=== PATIENT | male | born 1970 ===

== ENCOUNTER 2023-10-13 17:48 | Emergency (ER) | payer SELFPAY ==
[2023-10-13] VITALS (29 sets, daily range): BP systolic 132–255; BP diastolic 85–154; PULSE 60–124; RESP 12–25; TEMP 36.4–36.8; O2SAT 92–99
--- NOTE | 2023-10-13 19:06 | DI.RAD_ITS ---
Exam(s) XR ANKLE LT COMPLETE EXAM: XR ANKLE LT COMPLETE CLINICAL HISTORY: twisted L ankle, now pain TECHNIQUE: 2D digital imaging was performed. Three views. COMPARISON: CR,XR XR ANKLE LT 2V from 10/13/2023 FINDINGS: BONES: Transverse fracture extending through the medial malleolus with mild displacement. Oblique fr acture extending through the lateral malleolus with extension to the ankle mortise. No bony destruc tive lesion is seen. JOINTS:Widening of the medial ankle mortise. SOFT TISSUE: Normal. IMPRESSION: Mildly displaced bimalleolar fracture. DATA REPOSITORY: RADIATION DOSE DELIVERED:
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
[2023-10-13] MEDS: Ketamine 500 MG/10 ML VIAL 83 MG IVP (20:42)
--- NOTE | 2023-10-13 20:45 | DI.RAD_ITS ---
Exam(s) XR ANKLE LT 2V EXAM: XR ANKLE LT 2V INDICATION: post reduction. COMPARISON: CR,XR XR ANKLE LT COMPLETE from 10/13/2023 TECHNIQUE: 2D digital imaging was performed. Two views. FINDINGS: A splint has been placed. There is improvement in the alignment of the medial and lateral malleolar fractures. There is only slight residual ankle mortise widening. Soft tissue swelling is present. DATA REPOSITORY: RADIATION DOSE DELIVERED:
--- NOTE | 2023-10-13 21:17 | DI.VRAD_ITS ---
PROCEDURE INFORMATION: Exam: XR Left Ankle Exam date and time: 10/13/2023 9:05 PM Age: 53 years old Clinical indication: Condition or disease; Other: Post reduction TECHNIQUE: Imaging protocol: Radiologic exam of the left ankle. Views: 1 or 2 views. COMPARISON: CR XR ANKLE LT COMPLETE 10/13/2023 7:03 PM FINDINGS: Bones/joints: There has been interval reduction of previously described talar dome subluxation. Alignment of the distal tibia talar dome appears normal. There is also improved alignment of fractures of the medial and lateral malleoli with mild persistent displacement and moderate distraction. Soft tissues: Normal. Other findings: Casting material now in place. IMPRESSION: Interval improved alignment of bimalleolar ankle fractures and ankle joint as described. Dictated and Authenticated by: Francisco Arellano MD. Ordering:DANO Shin MD
--- NOTE | 2023-10-13 21:20 | W.ED.PROC ---
Date of service: 10/13/23 Time of Service: 21:20 Procedures Orthopedic Joint Reduction Joint #1: Time Out Performed: Yes Side: left Joint Reduction Location: ankle Analgesia: procedural sedation Shoulder Technique Used (if applicable): other (flexion at knee, supination of foot) Post-reduction neuro exam: intact Post-reduction vascular: intact Post Reduction X-Ray Obtained: Yes Post Reduction X-Ray Results: reduced Splint Applied: Yes Additional Comments: Applied posterior slab and stirrup with fiberglass splint Procedural Sedation ASA Class: I Time of Last PO Intake: 12:00 Preparation: vehicle monitor technician applied, pulse oximeter, capnometry used, suction/airway equipment at bedside and IV secured Ketamine dose (mg): 83 Complications: hypoventilation Interventions: airway repositioned and assist by BVM Additional Comments: Procedural sedation with IV ketamine for reduction of bimalleolar fracture left lower extremity, timeout was performed, nursing staff RT at bedside, patient on waveform capnography monitoring, patient given 1 mg/kg IV ketamine, with sufficient sedation, patient had several seconds of hypoventilation assisted with jaw thrust and brief BVM, with return of spontaneous respiratory drive, maintained airway throughout remainder of procedure and is returning to baseline currently required no further intervention. Medical Decision Making Quality:SDMS Health Related Social Needs: No Data to Display
--- NOTE | 2023-10-13 22:27 | RESPIRATORY ---
2030 PLACED PT ON 5L/M NC/CO2 MONITOR/PULSE OXIMETER. SAT 98, HR66,RR16 CO2 33, BP128/88/ @0 SAT 98, HR66, RR18, CO2 36 BP256/132. @ 2100 HR100, [id number], RR16, BP 221/135, CO2 39. PATIENT TOLERATED PROCEDURE WELL
[2023-10-13] MEDS: Acetaminophen 325 MG TAB 650 MG PO (22:29)
[2023-10-13] MEDS: HYDROcodone 5/Acetaminophen 325 TAB PO (22:30)
--- NOTE | 2023-10-14 08:47 | NUR.NOTE ---
Access chart to get billing information for [facility]. Nursing Note:
== END 2023-10-13 22:37 | disposition home or self-care (01) ==
PROVIDERS: Emergency Provider Nurse Practitioner Family
DX: S82.845A Nondisplaced bimalleolar fracture of left lower leg, initial encounter for closed fracture (principal); X50.1XXA Overexertion from prolonged static or awkward postures, initial encounter; Y93.55 Activity, bike riding; Y92.482 Bike path as the place of occurrence of the external cause
CPT/HCPCS: 99152; 99153; 99285; 73600; 73610